=== PATIENT | male | born 1950 | race African-American/Black ===

== ENCOUNTER 2016-11-22 11:07 | Inpatient (IN) | payer MEDICARE ==
[~2016-11-22] VITALS: Ht 182.9 cm; Wt 72.1 kg
[~2016-11-22 11:07] MED LIST: AMLODIPINE BESY10 MG PO; NEURONTIN400 MG PO; SULINDAC200 MG PO; SYNTHROID100 MCG PO; TENORMIN50 MG PO; VIAGRA100 MG PO
[2016-11-22 12:50] LABS: BASOPHIL 0.5 % (0-2); EOSINOPHIL 0.7 % (0-7); HCT 34.9 % (42.0-52.0); HGB 12.3 g/dl (13.2-18.0); LYMPHOCYTE 29.8 % (15-48); MCH 31.7 pg (25.0-31.0); MCHC 35.2 g/dL (32.0-36.0); MCV 89.9 fL (78.0-100.0); MONOCYTE 10.2 % (0-12); NEUTROPHIL 58.8 % (41-80); PLT 110 K/uL (150-400); RBC 3.88 M/uL (4.70-6.00); RDW 15.1 % (11.5-14.0); WBC 4.2 K/uL (4.0-10.5)
[2016-11-22 12:54] LABS: ALBUMIN 3.9 g/dL (3.4-4.8); BILIRUBIN - TOTAL 0.9 mg/dL (0.1-1.0); CREATININE 0.7 mg/dL (0.7-1.2); GLOBULIN (CALCULATION) 3.1 g/dL (2.2-4.2); POTASSIUM 3.5 mmol/L (3.5-5.1)
[2016-11-22 22:29] LABS: BILIRUBIN 2+ mg/dL (NEGATIVE); BLOOD 3+ Ery/uL (NEGATIVE); CLARITY CLEAR (CLEAR); COLOR YELLOW (YELLOW); GLUCOSE (U) NORMAL (NORMAL); KETONE (U) TRACE mg/dL (NEGATIVE); LEUKOCYTES NEGATIVE Leu/uL (NEGATIVE); NITRITE NEGATIVE (NEGATIVE); PROTEIN TRACE (LOW) mg/dL (NEGATIVE); SPECIFIC GRAVITY 1.025 (1.001-1.030); pH 5.5 (5.0-9.0)
[2016-11-22 22:35] LABS: BACTERIA TRACE; URINARY RBC TNTC
[2016-11-22 22:41] LABS: AMPHETAMINES NEGATIVE (NEGATIVE); BARBITURATES NEGATIVE (NEGATIVE); BENZODIAZEPINES NEGATIVE (NEGATIVE); COCAINE POSITIVE (NEGATIVE); MARIJUANA (THC) NEGATIVE (NEGATIVE); METHADONE NEGATIVE (NEGATIVE); TRICYCLIC ANTIDEPRESSANT NEGATIVE (NEGATIVE)
[2016-11-23 06:19] LABS: PROTHROMBIN TIME 12.8 SECONDS (11.7-14.0)
[2016-11-23 06:26] LABS: ALBUMIN 3.5 g/dL (3.4-4.8); BILIRUBIN - TOTAL 1.1 mg/dL (0.1-1.0); CREATININE 0.7 mg/dL (0.7-1.2); GLOBULIN (CALCULATION) 2.8 g/dL (2.2-4.2); HCT 31.1 % (42.0-52.0); MAGNESIUM 1.25 mg/dL (1.40-2.10); MCHC 35.4 g/dL (32.0-36.0); MCV 90.4 fL (78.0-100.0); MPV 10.7 fL (6.0-9.5); PHOSPHORUS 1.1 mg/dL (2.7-4.5); POTASSIUM 3.4 mmol/L (3.5-5.1); RBC 3.44 M/uL (4.70-6.00); TOTAL PROTEIN 6.3 g/dL (6.4-8.3); WBC 4.2 K/uL (4.0-10.5)
[2016-11-23 11:19] LABS: FT4 (FREE T4) 1.07 ng/dL (0.93-1.70); TSH (THYROID STIM HORMONE) 4.12 uIU/mL (0.270-4.200)
[2016-11-24 03:36] LABS: BASOPHIL 0.3 % (0-2); EOSINOPHIL 1.3 % (0-7); HCT 28.4 % (42.0-52.0); HGB 10.1 g/dl (13.2-18.0); LYMPHOCYTE 37.3 % (15-48); MCH 32.4 pg (25.0-31.0); MCHC 35.6 g/dL (32.0-36.0); MONOCYTE 6.2 % (0-12); MPV 10.7 fL (6.0-9.5); NEUTROPHIL 54.9 % (41-80); PLT 75 K/uL (150-400); RBC 3.12 M/uL (4.70-6.00); WBC 3.9 K/uL (4.0-10.5)
[2016-11-24 03:55] LABS: ALBUMIN 3.1 g/dL (3.4-4.8); BILIRUBIN - TOTAL 0.5 mg/dL (0.1-1.0); CREATININE 0.6 mg/dL (0.7-1.2); GLOBULIN (CALCULATION) 2.9 g/dL (2.2-4.2); MAGNESIUM 1.3 mg/dL (1.40-2.10); PHOSPHORUS 2.8 mg/dL (2.7-4.5); POTASSIUM 3.1 mmol/L (3.5-5.1)
[2016-11-24 10:37] LABS: MAGNESIUM 1.64 mg/dL (1.40-2.10)
== END 2016-11-24 14:00 | disposition home or self-care (01) | DRG 71 ==
LOC: FER 11:07 → FICU 19:15
PROVIDERS: Emergency Medicine; ADMIT Internal Medicine
DX: G93.41 Metabolic encephalopathy (principal); F33.1 Major depressive disorder, recurrent, moderate; D69.6 Thrombocytopenia, unspecified; E83.39 Other disorders of phosphorus metabolism; E83.42 Hypomagnesemia; F10.10 Alcohol abuse, uncomplicated; I10 Essential (primary) hypertension; R31.9 Hematuria, unspecified; E03.9 Hypothyroidism, unspecified; J20.9 Acute bronchitis, unspecified; G62.9 Polyneuropathy, unspecified; Z87.891 Personal history of nicotine dependence; F19.10 Other psychoactive substance abuse, uncomplicated
CPT/HCPCS: 36415; 70450; 71010; 73502; 80053; 80305; 81001; 82140; 82550; 82607; 83735; 84100; 84132; 84145; 84439; 84443; 84484; 85025; 85610; 93005; G0378; G0480; J2060; J3411; J3475